=== PATIENT | female | born 1995 | race Caucasian/White ===

== ENCOUNTER 2017-01-06 11:16 | Emergency (ER) | payer OTHER ==
[~2017-01-06] VITALS: Ht 147.3 cm; Wt 44.1 kg
[2017-01-06 12:32] LABS: BASO % 0.8 % (0.0-1.0); EOS # 0.1 K/mm3 (0.0-0.50); EOS % 1.8 % (0.0-3.0); LARGE UNSTAINED CELL # 0.1 K/mm3 (0.0-0.4); LARGE UNSTAINED CELL % 1.5 % (0.0-4.0); LYMPH # 1.6 K/mm3 (1.5-6.5); LYMPH % 24.6 % (24.0-44.0); MEAN CORPUSCULAR HEMOGLOBIN 30.2 pg (27.0-33.0); MEAN CORPUSCULAR HGB CONC 34.5 g/dl (32.0-36.5); MEAN CORPUSCULAR VOLUME 87.4 fl (80.0-96.0); MONO # 0.3 K/mm3 (0.0-0.8); MONO % 4.7 % (0.0-5.0); NEUTROPHILS % 66.7 % (36.0-66.0); PLATELET COUNT, AUTOMATED 239 k/mm3 (150-450); RED CELL DISTRIBUTION WIDTH 12.2 % (11.5-14.5)
[2017-01-06] MEDS ORDERED: NS 1,000 ML IV ONE (13:00)
--- NOTE | 2017-01-06 13:32 | REP ---
FIRST TRIMESTER OB ULTRASOUND AND ENDOVAGINAL PROBE OB ULTRASOUND: 01/06/2017 CLINICAL HISTORY: Vaginal bleeding and cramping, 7 weeks 3 days by LMP. Transabdominal imaging with the bladder empty and an endovaginal probe performed. There appears to be slight retroversion of the uterus on the transabdominal and standard endovaginal images show more complete retroversion. The uterus measures 7.7 x 4.7 x 5.2 cm and mean gestational sac diameter is 9.1 mm corresponding to 5 weeks 5 days. There is a questionable pole at 2.6 mm without color-flow or heart activity yet visible. This would be 5 week 6 days if it is a pole. There is a yolk sac evident. Question of a un-fused amnion also raised versus a second yolk sac, but I cannot confirm this. No subchorionic bleed. The right ovary 3.1 x 2.3 x 1.7 cm with Doppler tracing showing resistive index of 0.48. There is a hemorrhagic corpus luteum measuring 1.7 x 1.6 in the right ovary. The left ovary is 2.3 x 2.3 x 1.9 cm with Doppler tracing showing resistive index 0.61. No fluid in the cul-de-sac or adjacent to either ovary. IMPRESSION: 1. Retroverted uterus with a gestational sac which corresponds in size to 5 weeks 5 days and a suspected pole 2.6 mm corresponds to 5 weeks 6 days. It showed no color flow or Doppler heart activity or movement. Findings may reflect very early normal versus spontaneous missed AB. No subchorionic bleed or pelvic free fluid. Small hemorrhagic corpus luteum in the right ovary 1.7 x 1.6 cm. No other significant finding. 2. Recommend followup ultrasound and beta hCG at clinically appropriate interval. Signed by Flex Pedroza MD 01/06/2017 07:02 P
[2017-01-06] MEDS ORDERED: [UNRECOGNIZED DRUG - CODE] PV (13:57)
[2017-01-06 14:03] VITALS: BP 111/79
== END 2017-01-06 14:06 | disposition home or self-care (01) ==
LOC: M ED 11:16
DX: O23.591 Infection of other part of genital tract in pregnancy, first trimester (principal); B37.3 Candidiasis of vulva and vagina; O20.9 Hemorrhage in early pregnancy, unspecified; Z3A.01 Less than 8 weeks gestation of pregnancy; Z87.891 Personal history of nicotine dependence

== ENCOUNTER 2017-01-11 09:34 | Emergency (ER) | payer OTHER ==
[~2017-01-11] VITALS: Ht 147.3 cm; Wt 44.1 kg
[~2017-01-11 09:34] MED LIST: [UNRECOGNIZED DRUG - CODE] PV
[2017-01-11] MEDS ORDERED: PRENTAB55 PO (09:40)
[2017-01-11] MEDS ORDERED: NITR100C2 (09:40)
[2017-01-11 10:55] LABS: BASO % 0.9 % (0.0-1.0); EOS # 0.1 K/mm3 (0.0-0.50); EOS % 2.4 % (0.0-3.0); LARGE UNSTAINED CELL # 0.1 K/mm3 (0.0-0.4); LARGE UNSTAINED CELL % 1.3 % (0.0-4.0); LYMPH # 1.4 K/mm3 (1.5-6.5); LYMPH % 22.8 % (24.0-44.0); MEAN CORPUSCULAR VOLUME 85.7 fl (80.0-96.0); MONO # 0.3 K/mm3 (0.0-0.8); MONO % 4.4 % (0.0-5.0); NEUTROPHILS % 68.3 % (36.0-66.0); PLATELET COUNT, AUTOMATED 219 k/mm3 (150-450); RED CELL DISTRIBUTION WIDTH 12.2 % (11.5-14.5); WHITE BLOOD COUNT 5.8 K/mm3 (4.0-10.0)
[2017-01-11 12:16] VITALS: BP 113/73
--- NOTE | 2017-01-11 12:51 | REP ---
FIRST TRIMESTER OB ULTRASOUND AND ENDOVAGINAL PROBE ULTRASOUND: 01/11/2017. Comparison: 01/06/2017. Clinical history: Vaginal bleeding, may have passed products of conception or clot. Findings: Transabdominal and endovaginal probe images were obtained. The uterus appears anteverted today and measures 8.2 x 4.2 x 5.2 cm. However, in the body and fundus where previously a gestational sac was noted is only thickened heterogeneous endometrium, about 20 mm. In a patient who is actively bleeding during the examination. No fluid in the endometrial cavity. No gestational sac, yolk sac or pole evident. The right ovary is 3.1 x 2.3 x 2 cm with a 1.2 x 1 cm possible hemorrhagic corpus luteum. Doppler tracing with resistive index 0.44. The left ovary is 3.3 x 1.4 x 2.7 cm and unremarkable with Doppler resistive index 0.43, also normal. Impression: 1. There is heterogeneous thickening of the endometrial cavity up to 20 mm. Active bleeding with thickened heterogeneous endometrium where previously a gestational sac was noted 5 days ago. No yolk sac or pole visible. This may reflect retained products of conception. Central endometrial cavity is thickened up to 20 mm. 2. Small corpus luteum on the right 1.2 x 1 cm is suggested. No free fluid. Signed by Flex Pedroza MD 01/11/2017 06:04 P
== END 2017-01-11 12:22 | disposition home or self-care (01) ==
LOC: M ED 09:34
DX: O03.4 Incomplete spontaneous abortion without complication (principal); O23.41 Unspecified infection of urinary tract in pregnancy, first trimester; R10.2 Pelvic and perineal pain; Z79.899 Other long term (current) drug therapy; Z3A.01 Less than 8 weeks gestation of pregnancy

== ENCOUNTER 2018-10-19 21:16 | Emergency (ER) | payer OTHER ==
[~2018-10-19] VITALS: Ht 144.8 cm; Wt 51.8 kg
[~2018-10-19 21:16] MED LIST changes: +NITR100C2; +PRENTAB55 PO; +[UNRECOGNIZED DRUG - CODE] PV; -[UNRECOGNIZED DRUG - CODE] PV
[2018-10-19] MEDS ORDERED: ACETAMINOPHEN 500 MG TAB PO ONE (22:00)
[2018-10-19] MEDS ORDERED: METOCLOPRAMIDE INJ 10MG/2ML VIAL (J2765) IV ONE (22:00)
[2018-10-19] MEDS ORDERED: NS 1,000 ML IV ONE (22:00)
[2018-10-19] MEDS ORDERED: diphenhydrAMINE INJ 50MG/ML VIAL (J1200) IV ONE (22:00)
[2018-10-19] MEDS ORDERED: ACETAMINOPHEN 325 MG TAB As Ordered ONE (22:17)
[2018-10-19] MEDS ORDERED: KEFL500C17 PO (23:29)
[2018-10-19] MEDS ORDERED: CEPHALEXIN 500 MG CAP PO ONE (23:45)
[2018-10-19 23:52] VITALS: BP 114/60
== END 2018-10-19 23:56 | disposition home or self-care (01) ==
LOC: M ED 21:16
DX: O23.43 Unspecified infection of urinary tract in pregnancy, third trimester (principal); R51 Headache; Z3A.29 29 weeks gestation of pregnancy; Z87.891 Personal history of nicotine dependence
CPT/HCPCS: 81001; 87088; 87186; 96361; 96374; 96375; 99284; J1200; J2765